=== PATIENT | male | born 1995 | race Caucasian/White ===

== ENCOUNTER 2017-02-01 09:48 | Emergency (ER) | payer BC, SELFPAY ==
[2017-02-01] MEDS ORDERED: SODIUM CHLORIDE 0.9% 1,000 ML IV STA ×3 (10:01→10:59)
[2017-02-01] MEDS ORDERED: ONDANSETRON 4 MG/2 ML VIAL IVP STA (10:01)
[2017-02-01] MEDS ORDERED: HYDROmorphone 1 MG/ML 1 ML SYRINGE IVP STA ×3 (10:01→14:36)
--- NOTE | 2017-02-01 10:07 | ED ---
General Adult HPI - General Chief complaint: Abdominal Pain Stated complaint: ABDOMINAL PAIN, RT SIDE, VOMITING Time Seen by Provider: 02/01/17 09:53 Source: patient, RN notes reviewed Mode of arrival: ambulatory Limitations: no limitations - History of Present Illness Initial comments: Patient is a 21-year-old male who presents emergency room today with a chief complaint of right-sided abdominal pain. Does admit that symptoms started earlier this morning just a few hours ago. She describes it as sharp pain. Currently rates it at 10/10. Does admit to symptoms of nausea and vomiting. Patient does admit that he seen blood in his urine 2 weeks ago. Follow-up the family doctor or urologist. States had an ultrasound obtained at the time. Cannot see any kidney stones. Patient denies any other complaints or symptoms currently. Patient denies any recent fever, chills, shortness of breath, chest pain, back pain, numbness or tingling, dysuria or hematuria, constipation or diarrhea, headaches or visual changes, or any other complaints. - Related Data Previous Rx's Medication Instructions Recorded Hydrocodone/Acetaminophen [[place] 1 each PO Q6HR PRN #20 tab 02/01/17 5-325] Ibuprofen [Motrin] 600 mg PO Q6HR PRN #40 day 02/01/17 Ondansetron Odt [Zofran ODT] 4 mg PO Q8HR PRN #20 tab 02/01/17 Tamsulosin [Flomax] 0.4 mg PO DAILY #3 cap 02/01/17 Allergies Allergy/AdvReac Type Severity Reaction Status Date / Time No Known Allergies Allergy Unverified 02/01/17 10:53 Review of Systems ROS Statement: Those systems with pertinent positive or pertinent negative responses have been documented in the HPI. ROS Other: All systems not noted in ROS Statement are negative. Past Medical History Past Medical History: No Reported History History of Any Multi-Drug Resistant Organisms: None Reported Additional Past Surgical History / Comment(s): laminectomy and fusion Past Psychological History: No Psychological Hx Reported Smoking Status: Former smoker Past Alcohol Use History: Occasional Past Drug Use History: Marijuana General Exam - General Exam Comments Initial Comments: General: The patient is awake and alert, in moderate distress. Eye: Pupils are equal, round and reactive to light, extra-ocular movements are intact. No nystagmus. There is normal conjunctiva bilaterally. No signs of icterus. Ears, nose, mouth and throat: There are moist mucous membranes and no oral lesions. Neck: The neck is supple, there is no tenderness or JVD. Cardiovascular: There is a regular rate and rhythm. No murmur, rub or gallop is appreciated. Respiratory: Lungs are clear to auscultation, respirations are non-labored, breath sounds are equal. No wheezes, stridor, rales, or rhonchi. Gastrointestinal: Patient does have normal appearance to them. Normal bowel sounds. Abdomen soft on palpation. No pain on palpation. No rebound tenderness. No CVA tenderness. Musculoskeletal: Normal ROM, no tenderness. Strength 5/5. Sensation intact. Pulses equal bilaterally 2+. Neurological: A&O x 3. CN II-XII intact, There are no obvious motor or sensory deficits. Coordination appears grossly intact. Speech is normal. Skin: Skin is warm and dry and no rashes or lesions are noted. Psychiatric: Cooperative, appropriate mood & affect, normal judgment. Limitations: no limitations Course Vital Signs 02/01/17 02/01/17 02/01/17 09:51 10:19 12:32 Temperature 97.7 F Pulse Rate 104 H 63 Respiratory 22 18 Rate Blood Pressure 114/55 105/52 O2 Sat by Pulse 95 100 Oximetry 02/01/17 13:50 Temperature 97.2 F L Pulse Rate 69 Respiratory 20 Rate Blood Pressure 98/48 O2 Sat by Pulse 100 Oximetry Medical Decision Making - Medical Decision Making 21-year-old male presenting with right flank pain that started earlier this morning. Labs been reviewed shows an elevated lactic acid. Patient had multiple doses of nausea vomiting. Elevated white count. No fever. Vital stable at this time. 4.6 obstructing calculus at the level of the right UPJ resulting in a mild hydronephrosis. Analysis shows evidence of hematuria. No sign of infection. Patient will be discharged home. Advised follow-up the urologist in the next 2 days. Advised return if any symptoms increase or worsen. - Lab Data Result diagrams: 02/01/17 09:55 02/01/17 10:15 Lab Results 02/01/17 02/01/17 02/01/17 Range/Units 09:55 10:15 10:15 WBC 8.6 (3.8-10.6) k/uL RBC 5.33 (4.30-5.90) m/uL Hgb 16.8 (13.0-17.5) gm/dL Hct 50.0 (39.0-53.0) % MCV 93.9 (80.0-100.0) fL MCH 31.4 (25.0-35.0) pg MCHC 33.5 (31.0-37.0) g/dL RDW 13.1 (11.5-15.5) % Plt Count 232 (150-450) k/uL Neutrophils % 41 % Lymphocytes % 46 % Monocytes % 7 % Eosinophils % 1 % Basophils % 1 % Neutrophils # 3.5 (1.3-7.7) k/uL Lymphocytes # 3.9 (1.0-4.8) k/uL Monocytes # 0.6 (0-1.0) k/uL Eosinophils # 0.1 (0-0.7) k/uL Basophils # 0.1 (0-0.2) k/uL Sodium 143 (137-145) mmol/L Potassium 3.9 (3.5-5.1) mmol/L Chloride 106 (98-107) mmol/L Carbon Dioxide 20 L (22-30) mmol/L Anion Gap 17 mmol/L BUN 13 (9-20) mg/dL Creatinine 0.93 (0.66-1.25) mg/dL Est GFR (MDRD) Af Amer >60 (>60 ml/min/1.73 sqM) Est GFR (MDRD) Non-Af >60 (>60 ml/min/1.73 sqM) Glucose 131 H (74-99) mg/dL Plasma Lactic Acid [place] 5.9 H* (0.7-2.0) mmol/L Calcium 10.3 H (8.4-10.2) mg/dL Total Bilirubin 0.5 (0.2-1.3) mg/dL AST 23 (17-59) U/L ALT 23 (21-72) U/L Alkaline Phosphatase 58 (38-126) U/L Total Protein 7.4 (6.3-8.2) g/dL Albumin 4.6 (3.5-5.0) g/dL Amylase 38 (30-110) U/L Lipase 48 (23-300) U/L Urine Color Urine Appearance (Clear) Urine pH (5.0-8.0) Ur Specific [place] (1.001-1.035) Urine Protein (Negative) Urine Glucose (UA) (Negative) Urine Ketones (Negative) Urine Blood (Negative) Urine Nitrite (Negative) Urine Bilirubin (Negative) Urine Urobilinogen (<2.0) mg/dL Ur Leukocyte Esterase (Negative) Urine RBC (0-5) /hpf Amorphous Sediment (None) /hpf Urine Mucus (None) /hpf 02/01/17 Range/Units 13:09 WBC (3.8-10.6) k/uL RBC (4.30-5.90) m/uL Hgb (13.0-17.5) gm/dL Hct (39.0-53.0) % MCV (80.0-100.0) fL MCH (25.0-35.0) pg MCHC (31.0-37.0) g/dL RDW (11.5-15.5) % Plt Count (150-450) k/uL Neutrophils % % Lymphocytes % % Monocytes % % Eosinophils % % Basophils % % Neutrophils # (1.3-7.7) k/uL Lymphocytes # (1.0-4.8) k/uL Monocytes # (0-1.0) k/uL Eosinophils # (0-0.7) k/uL Basophils # (0-0.2) k/uL Sodium (137-145) mmol/L Potassium (3.5-5.1) mmol/L Chloride (98-107) mmol/L Carbon Dioxide (22-30) mmol/L Anion Gap mmol/L BUN (9-20) mg/dL Creatinine (0.66-1.25) mg/dL Est GFR (MDRD) Af Amer (>60 ml/min/1.73 sqM) Est GFR (MDRD) Non-Af (>60 ml/min/1.73 sqM) Glucose (74-99) mg/dL Plasma Lactic Acid [place] (0.7-2.0) mmol/L Calcium (8.4-10.2) mg/dL Total Bilirubin (0.2-1.3) mg/dL AST (17-59) U/L ALT (21-72) U/L Alkaline Phosphatase (38-126) U/L Total Protein (6.3-8.2) g/dL Albumin (3.5-5.0) g/dL Amylase (30-110) U/L Lipase (23-300) U/L Urine Color Light Red Urine Appearance Cloudy (Clear) Urine pH 8.0 (5.0-8.0) Ur Specific [place] 1.012 (1.001-1.035) Urine Protein Trace H (Negative) Urine Glucose (UA) Negative (Negative) Urine Ketones Trace H (Negative) Urine Blood Moderate H (Negative) Urine Nitrite Negative (Negative) Urine Bilirubin Negative (Negative) Urine Urobilinogen <2.0 (<2.0) mg/dL Ur Leukocyte Esterase Negative (Negative) Urine RBC >182 H (0-5) /hpf Amorphous Sediment Rare H (None) /hpf Urine Mucus Rare H (None) /hpf Disposition Clinical Impression: Kidney stone Disposition: HOME SELF-CARE Condition: Good Instructions: Kidney Stones (ED) Additional Instructions: Please use medication as discussed. Please follow-up with family doctor/ urologist in the next 2 days of symptoms have not improved. Please return to emergency room if the symptoms increase or worsen or for any other concerns. Prescriptions: Hydrocodone/Acetaminophen [[place] 5-325] 1 each PO Q6HR PRN #20 tab PRN Reason: Pain Ibuprofen [Motrin] 600 mg PO Q6HR PRN #40 day PRN Reason: Pain Ondansetron Odt [Zofran ODT] 4 mg PO Q8HR PRN #20 tab PRN Reason: Nausea Tamsulosin [Flomax] 0.4 mg PO DAILY #3 cap Referrals: Keyon Goodrich DO [Primary Care Provider] - 1-2 days Kenton Landrum MD [STAFF PHYSICIAN] - 1-2 days Time of Disposition: 14:26
[2017-02-01 10:27] LABS: Basophils # (A) 0.1 k/uL (0-0.2); Basophils % (A) 1 %; CH 31.7; Eosinophils # (A) 0.1 k/uL (0-0.7); Eosinophils % (A) 1 %; HDW 2.54; HGB 16.8 gm/dL (13.0-17.5); Luc # (Auto) 0.38; Luc % (Auto) 4; Lymphocytes # (A) 3.9 k/uL (1.0-4.8); Lymphocytes % (A) 46 %; MCH 31.4 pg (25.0-35.0); MCHC 33.5 g/dL (31.0-37.0); MCV 93.9 fL (80.0-100.0); Mean Platelet Volume 6.9; Monocytes # (A) 0.6 k/uL (0-1.0); Monocytes % (A) 7 %; Neutrophils # (A) 3.5 k/uL (1.3-7.7); Neutrophils % (A) 41 %; RBC 5.33 m/uL (4.30-5.90); RDW 13.1 % (11.5-15.5); WBC 8.6 k/uL (3.8-10.6); WBC (Perox) 8.73
--- NOTE | 2017-02-01 10:32 | XR ---
EXAMINATION TYPE: XR KUB DATE OF EXAM ORDERED: 02/01/2017 10:29 AM HISTORY: abdominal pain. COMPARISON: None. FINDINGS: There has been an interpedicular fusion at L5-S1. The abdominal gas pattern is normal. There is no evidence of obstruction or free air. No unusual calc ifications are seen. IMPRESSION: NO ACUTE INTRA-ABDOMINAL ABNORMALITY.
[2017-02-01 10:47] LABS: ALT 23 U/L (21-72); AST 23 U/L (17-59); Alkaline Phosphatase 58 U/L (38-126); Amylase 38 U/L (30-110); Anion Gap 17 mmol/L; Blood Urea Nitrogen 13 mg/dL (9-20); Calcium 10.3 mg/dL (8.4-10.2); Carbon Dioxide 20 mmol/L (22-30); Chloride 106 mmol/L (98-107); Glucose 131 mg/dL (74-99); Non-African American GFR(MDRD) >60 (>60 ml/min/1.73 sqM); Potassium 3.9 mmol/L (3.5-5.1); Sodium 143 mmol/L (137-145); Total Bilirubin 0.5 mg/dL (0.2-1.3); Total Protein 7.4 g/dL (6.3-8.2)
--- NOTE | 2017-02-01 12:15 | CT ---
EXAMINATION TYPE: CT abdomen pelvis wo con DATE OF EXAM: 02/01/2017 12:09 PM COMPARISON: NONE HISTORY: Right sided abdominal pain and vomitting. Hematuria. CT DLP: 242.50 mGycm FINDINGS: LUNG BASES: No evidence for nodule. No evidence for infiltrate. LIVER/GB: The gallbladder is unremarkable. No space-occupying hepatic lesion. PANCREAS: No pancreatic mass identified. No inflammatory process seen. SPLEEN: No evidence for splenomegaly. No intrasplenic lesions seen. ADRENALS: No adrenal nodules identified. No evidence for thickening. KIDNEYS: 4.6 mm obstructing calculus at the level of the right UPJ resulting in mild hydronephrosis. No additional calculi identified. No left-sided hydronephrosis. No renal masses seen. BOWEL: Appendix has a normal appearance. No evidence of bowel obstruction. No inflammatory process. Lymph nodes: No evidence for adenopathy greater than 1 cm. Abdominal aorta: Atheromatous changes seen. No evidence for aneurysm. Genital organs: No significant abnormality. Other: Postoperative changes lumbar spine. IMPRESSION: 4.6 mm obstructing calculus at the level of the right UPJ resulting in mild hydronephrosis. No additi onal calculi identified.
[2017-02-01] MEDS ORDERED: KETOROLAC 30 MG/ML 1 ML VIAL IVP STA (12:21)
[2017-02-01 13:57] LABS: Amorphous Sediment,Urine Rare /hpf; Appearance,Urine Cloudy (Clear); Bilirubin,Urine Negative (Negative); Glucose,Urine (UA) Negative (Negative); Ketones,Urine Trace (Negative); Leukocyte Esterase,Urine Negative (Negative); Mucus,Urine Rare /hpf; Nitrite,Urine Negative (Negative); Particle Count 9941; Protein,Urine Trace (Negative); RBC,Urine >182 /hpf (0-5); Specific Gravity,Urine 1.012 (1.001-1.035); UA Billing (MACRO vs. MICRO) MICRO; Urobilinogen,Urine <2.0 mg/dL (<2.0)
[2017-02-01 14:48] VITALS: BP 97/51; PULSE 57; RESP 15; TEMP 97.7
== END 2017-02-01 14:45 | disposition home or self-care (01) ==
LOC: EC 09:48
DX: N13.2 Hydronephrosis with renal and ureteral calculous obstruction (principal); R11.2 Nausea with vomiting, unspecified; D72.829 Elevated white blood cell count, unspecified; Z87.891 Personal history of nicotine dependence
CPT/HCPCS: 99284; 96374; 96375 ×2; 96376 ×2; 96361 ×5; 51798; 36415; 80053; 82150; 83605; 83690; 85025; 81001; 87086; 74000; 74176; J2405; J1885; J1170

== ENCOUNTER 2017-02-05 07:37 | Emergency (ER) | payer BC, SELFPAY ==
[2017-02-05] MEDS ORDERED: KETOROLAC 60 MG/2 ML VIAL IVP STA (07:59)
[2017-02-05] MEDS ORDERED: HYDROmorphone 1 MG/ML 1 ML SYRINGE IVP STA ×3 (07:59→10:05)
[2017-02-05] MEDS ORDERED: SODIUM CHLORIDE 0.9% 1,000 ML IV ONE ×2 (07:59→08:56)
[2017-02-05] MEDS ORDERED: ONDANSETRON 4 MG/2 ML VIAL IVP STA (07:59)
[2017-02-05] MEDS ORDERED: SODIUM CHLORIDE 0.9% 1,000 ML IV STA (08:02)
[2017-02-05 08:14] LABS: Basophils # (A) 0.1 k/uL (0-0.2); Basophils % (A) 1 %; CH 32.3; CHCM 34.7; Eosinophils % (A) 0 %; HDW 2.48; Luc # (Auto) 0.12; Luc % (Auto) 1; Lymphocytes # (A) 1.2 k/uL (1.0-4.8); Lymphocytes % (A) 12 %; MCH 31.1 pg (25.0-35.0); MCHC 33.3 g/dL (31.0-37.0); MCV 93.3 fL (80.0-100.0); Mean Platelet Volume 6.7; Monocytes # (A) 0.5 k/uL (0-1.0); Monocytes % (A) 5 %; Neutrophils # (A) 8.1 k/uL (1.3-7.7); Neutrophils % (A) 81 %; RBC 5.14 m/uL (4.30-5.90); RDW 13.5 % (11.5-15.5); WBC 10.1 k/uL (3.8-10.6); WBC (Perox) 9.68
[2017-02-05 08:23] LABS: ALT 30 U/L (21-72); AST 22 U/L (17-59); Alkaline Phosphatase 63 U/L (38-126); Amylase 38 U/L (30-110); Anion Gap 15 mmol/L; Blood Urea Nitrogen 9 mg/dL (9-20); Calcium 10.2 mg/dL (8.4-10.2); Carbon Dioxide 23 mmol/L (22-30); Chloride 104 mmol/L (98-107); Glucose 119 mg/dL (74-99); Non-African American GFR(MDRD) >60 (>60 ml/min/1.73 sqM); Potassium 3.7 mmol/L (3.5-5.1); Sodium 142 mmol/L (137-145); Total Bilirubin 0.6 mg/dL (0.2-1.3); Total Protein 7.9 g/dL (6.3-8.2)
--- NOTE | 2017-02-05 08:53 | XR ---
EXAMINATION TYPE: XR KUB DATE OF EXAM: 02/05/2017 8:43 AM COMPARISON: NONE INDICATION: Previous abnormal abdomen, flank pain abdominal pain TECHNIQUE: Single view abdomen upright view FINDINGS: There is a normal bowel gas pattern. Psoas margins are normal. No organomegaly is present. Suspicious calcifications are not identified. IMPRESSION: 1. Unremarkable Abdomen
--- NOTE | 2017-02-05 09:10 | ED ---
Abdominal Pain HPI - General Chief Complaint: Abdominal Pain Stated Complaint: vomiting, poss kidney stone Time Seen by Provider: 02/05/17 08:02 Source: patient, family, RN notes reviewed Mode of arrival: wheelchair Limitations: no limitations - History of Present Illness Initial Comments: 21-year-old male presents emergency department she went right flank pain. Patient was seen here on Saturday diagnosed with a 4.6 mm ureteral stone. Patient states that he did okay throughout the weekend woke up today if severe pain. Patient states that he started vomiting again. He states that this pain medication is not helping and he cannot tolerate the pain. Patient denies fever , chills. Patient denies any chest pain or shortness breath. Patient states that nothing makes the pain feel better or worse. - Related Data Home Medications Medication Instructions Recorded Confirmed Hydrocodone/Acetaminophen [[place] 1 tab PO Q6HR PRN 02/05/17 02/05/17 5-325] Ibuprofen [Motrin] 600 mg PO Q4H PRN 02/05/17 02/05/17 Multivitamins, Thera [Multivitamin 1 tab PO DAILY 02/05/17 02/05/17 (formulary)] Previous Rx's Medication Instructions Recorded Ondansetron Odt [Zofran ODT] 4 mg PO Q8HR PRN #20 tab 02/01/17 HYDROcodone/APAP 7.5-325MG [[place] 1 tab PO Q6HR PRN #20 tab 02/05/17 7.5-325] Ketorolac [Toradol] 10 mg PO Q8HR #15 tab 02/05/17 Tamsulosin [Flomax] 0.4 mg PO DAILY #7 cap 02/05/17 Allergies Allergy/AdvReac Type Severity Reaction Status Date / Time No Known Allergies Allergy Verified 02/05/17 08:54 Review of Systems ROS Statement: Those systems with pertinent positive or pertinent negative responses have been documented in the HPI. ROS Other: All systems not noted in ROS Statement are negative. Past Medical History Past Medical History: No Reported History History of Any Multi-Drug Resistant Organisms: None Reported Additional Past Surgical History / Comment(s): laminectomy and fusion Past Psychological History: No Psychological Hx Reported Smoking Status: Former smoker Past Alcohol Use History: Occasional Past Drug Use History: Marijuana General Exam Limitations: no limitations General appearance: alert, in no apparent distress Neck exam: Present: normal inspection. Absent: tenderness, meningismus, lymphadenopathy Respiratory exam: Present: normal lung sounds bilaterally. Absent: respiratory distress, wheezes, rales, rhonchi, stridor Cardiovascular Exam: Present: regular rate, normal rhythm, normal heart sounds. Absent: systolic murmur, diastolic murmur, rubs, gallop, clicks GI/Abdominal exam: Present: soft, tenderness (Minimal tenderness with palpation over the patient's area of pain right flank), normal bowel sounds. Absent: distended, guarding, rebound, rigid Back exam: Absent: CVA tenderness (R), CVA tenderness (L) Skin exam: Present: warm, dry, intact, normal color. Absent: rash Course Vital Signs 02/05/17 02/05/17 07:45 09:41 Temperature 98.2 F 97.9 F Pulse Rate 91 74 Respiratory 26 H 18 Rate Blood Pressure 127/66 110/60 O2 Sat by Pulse 99 96 Oximetry Medical Decision Making - Medical Decision Making 21-year-old male presented for right flank pain. Patient has a known 4.6 mm stone. Patient states that he does feel improved at this time. Patient was given IV fluids, pain medication. Patient will written additional pain medication and will follow-up with urology if needed. Return parameters were discussed. - Lab Data Result diagrams: 02/05/17 07:52 02/05/17 07:52 Lab Results 02/05/17 02/05/17 02/05/17 Range/Units 07:52 07:52 09:08 WBC 10.1 (3.8-10.6) k/uL RBC 5.14 (4.30-5.90) m/uL Hgb 16.0 (13.0-17.5) gm/dL Hct 48.0 (39.0-53.0) % MCV 93.3 (80.0-100.0) fL MCH 31.1 (25.0-35.0) pg MCHC 33.3 (31.0-37.0) g/dL RDW 13.5 (11.5-15.5) % Plt Count 194 (150-450) k/uL Neutrophils % 81 % Lymphocytes % 12 % Monocytes % 5 % Eosinophils % 0 % Basophils % 1 % Neutrophils # 8.1 H (1.3-7.7) k/uL Lymphocytes # 1.2 (1.0-4.8) k/uL Monocytes # 0.5 (0-1.0) k/uL Eosinophils # 0.0 (0-0.7) k/uL Basophils # 0.1 (0-0.2) k/uL Sodium 142 (137-145) mmol/L Potassium 3.7 (3.5-5.1) mmol/L Chloride 104 (98-107) mmol/L Carbon Dioxide 23 (22-30) mmol/L Anion Gap 15 mmol/L BUN 9 (9-20) mg/dL Creatinine 0.98 (0.66-1.25) mg/dL Est GFR (MDRD) Af Amer >60 (>60 ml/min/1.73 sqM) Est GFR (MDRD) Non-Af >60 (>60 ml/min/1.73 sqM) Glucose 119 H (74-99) mg/dL Calcium 10.2 (8.4-10.2) mg/dL Total Bilirubin 0.6 (0.2-1.3) mg/dL AST 22 (17-59) U/L ALT 30 (21-72) U/L Alkaline Phosphatase 63 (38-126) U/L Total Protein 7.9 (6.3-8.2) g/dL Albumin 4.8 (3.5-5.0) g/dL Amylase 38 (30-110) U/L Lipase 44 (23-300) U/L Urine Color Light Red Urine Appearance Turbid (Clear) Urine pH 8.0 (5.0-8.0) Ur Specific [place] 1.017 (1.001-1.035) Urine Protein 1+ H (Negative) Urine Glucose (UA) Negative (Negative) Urine Ketones 1+ H (Negative) Urine Blood Large H (Negative) Urine Nitrite Negative (Negative) Urine Bilirubin Negative (Negative) Urine Urobilinogen <2.0 (<2.0) mg/dL Ur Leukocyte Esterase Negative (Negative) Urine RBC >182 H (0-5) /hpf Urine WBC 86 H (0-5) /hpf Amorphous Sediment Occasional H (None) /hpf Disposition Clinical Impression: Ureteral stone, Right flank pain, Nausea & vomiting Disposition: HOME SELF-CARE Condition: Stable Instructions: Kidney Stones (ED) Additional Instructions: Please return to the Emergency Department if symptoms worsen or any other concerns. Prescriptions: HYDROcodone/APAP 7.5-325MG [[place] 7.5-325] 1 tab PO Q6HR PRN #20 tab PRN Reason: Pain Ketorolac [Toradol] 10 mg PO Q8HR #15 tab Tamsulosin [Flomax] 0.4 mg PO DAILY #7 cap Time of Disposition: 09:48
[2017-02-05 09:30] LABS: Amorphous Sediment,Urine Occasional /hpf; Appearance,Urine Turbid (Clear); Bilirubin,Urine Negative (Negative); Glucose,Urine (UA) Negative (Negative); Ketones,Urine 1+ (Negative); Leukocyte Esterase,Urine Negative (Negative); Nitrite,Urine Negative (Negative); Particle Count 17492; Protein,Urine 1+ (Negative); RBC,Urine >182 /hpf (0-5); Specific Gravity,Urine 1.017 (1.001-1.035); UA Billing (MACRO vs. MICRO) MICRO; Urobilinogen,Urine <2.0 mg/dL (<2.0); WBC,Urine 86 /hpf (0-5)
[2017-02-05] MEDS ORDERED: TAMSULOSIN 0.4 MG CAP.ER.24H PO STA (09:48)
[2017-02-05 10:26] VITALS: BP 102/53; PULSE 77; RESP 16; TEMP 97.7
== END 2017-02-05 10:28 | disposition home or self-care (01) ==
LOC: EC 07:37
DX: N20.1 Calculus of ureter (principal); R11.2 Nausea with vomiting, unspecified; Z87.891 Personal history of nicotine dependence; Z79.899 Other long term (current) drug therapy
CPT/HCPCS: 36415; 80053; 82150; 83690; 85025; 81001; 87086; 74000; 99284; 96374; 96375 ×2; 96376 ×2; 96361 ×2; J2405; J1885; J1170